=== PATIENT | female | born 1955 | race Caucasian/White ===

== ENCOUNTER → 2016-09-21 | Outpatient (CLI) | payer OTHER ==
--- NOTE | 2016-09-21 17:11 | CT ---
CT Scan of the Chest (Without Contrast) Clinical Indications: Follow up pulmonary nodules. Technique: Multidetector helical CT was performed from the superior thoracic inlet to the diaphragm. No intravenous contrast was given. The radiologist manipulated images at the computer workstation. Dose reduction techniques were utilized. Comparison: January 30, 2016. Findings: The lungs are clear, and there is no pleural effusion. The area of lingular nodularity or scarring is smaller on today's examination, measuring 6.0 x 7.0 mm, series #3, image #161. In the r ight middle lobe, the probably benign 2.0- x 2.9-mm right middle lobe pulmonary nodule is stable. Th e great vessels and pericardium are grossly unremarkable. No pneumothorax. An 11- x 8-mm adrenal ad enoma, with Hounsfield units precontrast of 7, is seen and has a benign appearance. Impression: Eight-month stability in these pulmonary nodules. Continued interval follow up is recom mended at 9 to 12 months and 24 months given the patient's history of breast cancer.
== END ==
LOC: CIMAGING 09:07
PROVIDERS: ATTEND Internal Medicine Hematology & Oncology
DX: R91.8 Other nonspecific abnormal finding of lung field (principal); Z85.3 Personal history of malignant neoplasm of breast
CPT/HCPCS: 71250-PO

== ENCOUNTER → 2017-04-26 | Outpatient (CLI) | payer OTHER ==
[~2017-04-26] MED LIST: IOPAMIDOL (ISOVUE-300) 100 ML BTL ONE
== END ==
LOC: FIMAGING 14:13
PROVIDERS: ATTEND Internal Medicine Hematology & Oncology
DX: R91.8 Other nonspecific abnormal finding of lung field (principal); N28.1 Cyst of kidney, acquired; C50.411 Malignant neoplasm of upper-outer quadrant of right female breast
CPT/HCPCS: Q9967